=== PATIENT | male | born 1955 | race Caucasian/White ===

== ENCOUNTER → 2023-09-12 14:53 | Outpatient (BNVA) | payer OTHER, SELFPAY | PROVIDERS: Visit Provider Podiatrist Foot & Ankle Surgery | DX: M20.41 Other hammer toe(s) (acquired), right foot; E11.42 Type 2 diabetes mellitus with diabetic polyneuropathy; M21.41 Flat foot [pes planus] (acquired), right foot; M77.41 Metatarsalgia, right foot; M21.42 Flat foot [pes planus] (acquired), left foot | CPT/HCPCS: 73630; 99204 ==

== ENCOUNTER 2023-09-17 14:46 | Outpatient (CLI) | payer OTHER, SELFPAY ==
--- NOTE | 2023-09-17 15:15 | MR_ITS ---
WS: [id number] EXAMINATION: MR foot RT wo con* [id number] ORDER DATE: 09/17/2023 3:02 PM COMPARISON: None. HISTORY: evaluate for Gagnon's neuroma right foot CONTRAST: None. TECHNIQUE: Sagittal T1, sagittal STIR, coronal PD, coronal T2, axial T1, axial T2, and axial PD imagi ng with fat saturation technique. 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 Hammertoe deformitie s. Hypertrophic changes in the first MTP with fluid at the MTP joint. No definite evidence of of Mort on's neuroma at the MTP joints. Exam is somewhat limited due to toe contractures. Ultrasound could be performed for further evaluation if persistent concern. No other suspicious findings. IMPRESSION: 1. 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 Fluid and edema at the first MTP joint with hypertrophic changes. 2. Hammertoe deformities. 3. No definite evidence of Gagnon's neuroma. Exam is somewhat limited due to toe contractures. Ultra sound could be performed in the area of interest if persistent concern.
== END 2023-09-17 14:47 | disposition home or self-care (01) ==
LOC: RAD 14:46
PROVIDERS: Visit Provider Podiatrist Foot & Ankle Surgery
DX: M20.41 Other hammer toe(s) (acquired), right foot (principal); M77.41 Metatarsalgia, right foot; M19.071 Primary osteoarthritis, right ankle and foot; M21.611 Bunion of right foot; M20.11 Hallux valgus (acquired), right foot; R60.0 Localized edema
CPT/HCPCS: 73718

== ENCOUNTER → 2023-11-07 13:33 | Outpatient (BNVA) | payer OTHER, SELFPAY | PROVIDERS: PCP Family Medicine; Visit Provider Surgery | DX: Z12.11 Encounter for screening for malignant neoplasm of colon (principal) | CPT/HCPCS: 99203 ==

== ENCOUNTER 2023-11-16 15:04 | Outpatient (CLI) | payer OTHER, SELFPAY ==
--- NOTE | 2023-11-16 15:15 | US_ITS ---
WS: [id number] ULTRASOUND SOFT TISSUES RIGHT foot. HISTORY: M77.41 - Metatarsalgia, right foot COMPARISON: MRI 09/17/2023 TECHNIQUE: 2-D and color Doppler imaging is submitted. Ultrasound is performed of the intertarsal spaces of the RIGHT foot with attention between the first and second, second and third and third and fourth spaces. There is no mass identified within either o f the intertarsal spaces. IMPRESSION: No Gagnon's neuroma identified in the intertarsal spaces of the RIGHT foot.
== END 2023-11-16 15:05 | disposition home or self-care (01) ==
PROVIDERS: PCP Family Medicine; Visit Provider Podiatrist Foot & Ankle Surgery
DX: M77.41 Metatarsalgia, right foot (principal)
CPT/HCPCS: 76882

== ENCOUNTER 2023-12-31 12:54 | Outpatient (CLI) | payer OTHER, SELFPAY ==
--- NOTE | 2023-12-31 13:00 | MR_ITS ---
WS: [id number] MRI LUMBAR SPINE NONCONTRAST TECHNIQUE: Sagittal T1, T2 and STIR imaging. Axial T1 and T2 imaging. CLINICAL INFORMATION: LOW BACK PAIN/INTERVERTEBRAL DISC DZ COMPARISON: None. FINDINGS: Mild lumbar curve. No acute compression. Mild disc bulging worse at L4-L5 and L5-S1. No high-grade ce ntral canal stenosis. L1-L2: Mild annular bulging. Slight effacement of the ventral thecal sac. Mild facet arthropathy. For amen are patent. L2-L3: Mild annular bulging with narrowing of the LEFT subarticular recess. Moderate facet arthropath y. Foramen are patent. L3-L4: Mild annular bulging. Slight effacement of ventral thecal sac. Mild facet arthropathy. Mild LE FT foraminal narrowing. L4-L5: Mild disc bulge with narrowing of the RIGHT greater than LEFT subarticular recess. Impingement of traversing RIGHT L5 nerve root. Moderate facet arthropathy. Moderate RIGHT and no significant LEF T foraminal narrowing. L5-S1: Mild annular bulging. Mild facet arthropathy. Spinal canal and foramen are patent. Visualized pelvic bony structures: Normal. Paravertebral soft tissues: Normal. IMPRESSION: 1. Mild lumbar curve. No acute compression. No high-grade central canal stenosis. 2. Annular bulging L4-5 with impingement RIGHT subarticular recess and traversing RIGHT L5 nerve keon t. Recommend correlation RIGHT L5 nerve root symptoms. 3. Moderate RIGHT L4-5 foraminal narrowing with impingement on the exiting RIGHT L4 nerve root. 4. Annular bulging L2-3 with narrowing of the LEFT subarticular recess. 5. Moderate facet arthropathy L4-5.
== END 2023-12-31 12:55 | disposition home or self-care (01) ==
LOC: RAD 12:55
PROVIDERS: PCP Family Medicine; Visit Provider Family Medicine
DX: M54.50 Low back pain, unspecified (principal); M48.061 Spinal stenosis, lumbar region without neurogenic claudication; M47.816 Spondylosis without myelopathy or radiculopathy, lumbar region
CPT/HCPCS: 72148

== ENCOUNTER → 2024-01-17 13:42 | Outpatient (BNVA) | payer OTHER, SELFPAY | PROVIDERS: PCP Family Medicine; Referring Provider Family Medicine; Visit Provider Orthopaedic Surgery | DX: M54.9 Dorsalgia, unspecified (principal); M48.062 Spinal stenosis, lumbar region with neurogenic claudication | CPT/HCPCS: 36415; 80053; 81003; 85025; 99204 ==

== ENCOUNTER → 2024-08-13 13:38 | Outpatient (BNVA) | payer OTHER, SELFPAY | PROVIDERS: PCP Family Medicine; Visit Provider Surgery | DX: K21.9 Gastro-esophageal reflux disease without esophagitis (principal); Z12.11 Encounter for screening for malignant neoplasm of colon | CPT/HCPCS: 99214 ==

== ENCOUNTER 2024-08-28 06:37 | Day surgery (SDC) | payer OTHER, SELFPAY ==
[2024-08-28 06:54] VITALS: BP 126/76; PULSE 109; RESP 18; TEMP 36.6; O2SAT 96; BMI 22.8
[2024-08-28] MEDS: sodium chloride 0.9% 500 ML 15 ML IV (07:04)
[2024-08-28 07:08] LABS: Glucose Point of Care 120 mg/dL (70-110)
--- NOTE | 2024-08-28 07:34 | P.ANESASSM_ITS ---
Pre-Anesthetic Assessment Height/Weight: Height 1.73 m Weight 68.039 kg Temp Pulse Resp BP Pulse Ox O2 Del Method 97.8 F 109 H 18 126/76 96 Room Air 08/28/24 06:54 08/28/24 06:54 08/28/24 06:54 08/28/24 06:54 08/28/24 06:54 08/28/24 06:54 Operation Date: 08/28/24 08:20 Proposed Procedures p EGD - 73003, 57527, G0105, K21.9, Z12.11(Not Applicable) - Johann Elkins MD s Colonoscopy(Not Applicable) - Johann Elkins MD Was Beta Ganga taken within 24 hours: N/A Was Clonidine taken within 24 hours: N/A Last intake: Intake Last Liquid Date 08/27/24 Last Liquid Time 19:30 Last Solid Date 08/26/24 Last Solid Time 19:00 Social No alcohol and No tobacco Exam alert and oriented x 3 Airway Submandibular: within normal limits Cervical ROM: within normal limits Mallampati: Class II Dentition: false Pulmonary None reported CV/HEM Hypertension 2 stents placed 11 years ago. None reported Hepatic None reported GI Gastroesophageal Reflux Disease Metabolic Diabetes Mellitus and Hyperlipidemia Musc/[facility] Osteoarthritis/DJD Neuropsych None reported Anesthetic Plan ASA status: 3 Anesthesia: Anesthesia Evaluation and MAC Medications/Allergies Home Medications Medication Instructions Recorded Confirmed Last Taken Type Low profile CUSTOM co-poly insoles #1 ea 09/12/23 08/28/24 Unknown Rx alogliptin 25 mg tablet 25 mg PO DAILY 09/12/23 08/28/24 08/27/24 History atorvastatin 80 mg tablet 80 mg PO DAILY 09/12/23 08/28/24 08/27/24 History clopidogrel 75 mg tablet 75 mg PO DAILY 09/12/23 08/28/24 08/22/24 History empagliflozin 25 mg tablet 25 mg PO DAILY 09/12/23 08/28/24 08/27/24 History lisinopril 20 mg tablet 20 mg PO DAILY 09/12/23 08/28/24 08/27/24 History citalopram 10 mg tablet 10 mg PO DAILY 11/07/23 08/28/24 08/27/24 History Allergies Allergy/AdvReac Type Severity Reaction Status Date / Time No Known Allergies Allergy Verified 08/13/24 13:49 PFS Anesthesia Medical History Gagnon's neuroma of right foot Family History Mother COPD (chronic obstructive pulmonary disease) Grandmother Emphysema lung Social History Smoking and tobacco/nicotine status: former use of tobacco/nicotine Alcohol intake: former Data Anesthesia Cardiac Studies: No Data to Display
--- NOTE | 2024-08-28 07:36 | W.PM.OPSUD ---
Surgery/Procedure H&P Update DATE OF PROCEDURE: August 28, 2024 DATE H&P PERFORMED: 08/13/24 H&P UPDATE INFORMATION: I have reviewed H&P completed within last 30 days, I have examined patient prior to procedure, No changes to prior documentation and H&P is in [facility] EMR on date indicated PLANNED PROCEDURE: Operation Date: 08/28/24 08:20 Proposed Procedures p EGD - 56903, 99772, G0105, K21.9, Z12.11(Not Applicable) - Johann Elkins MD s Colonoscopy(Not Applicable) - Johann Elkins MD
[2024-08-28 08:34] VITALS: BP 93/63; PULSE 101; RESP 18; TEMP 36.1; O2SAT 93
--- NOTE | 2024-08-28 08:54 | ANE.PACU2 ---
Inpatient post-anesthesia follow up: Airway intact: Yes Vital signs: Temperature 97.0 F Pulse Rate 101 Respiratory Rate 18 Blood Pressure 93/63 Pulse Oximetry 93 Oxygen Delivery Me thod Room Air Oxygen Flow Rate Fraction of Inspir ed Oxygen Hydration adequate: Yes Nausea and vomiting: No Pain level: 1 Mental status: Baseline
[2024-08-28 09:00] VITALS: BP 117/69; PULSE 92; RESP 17; O2SAT 96
== END 2024-08-28 09:31 | disposition home or self-care (01) ==
PROVIDERS: PCP Family Medicine; Visit Provider Surgery
PROC: 0DJ08ZZ Inspection of Upper Intestinal Tract, Via Natural or Artificial Opening Endoscopic (ICD-10-PCS; CPT 43235; principal; 2024-08-28 08:20)
PROC: 0DJD8ZZ Inspection of Lower Intestinal Tract, Via Natural or Artificial Opening Endoscopic (ICD-10-PCS; CPT 45378; 2024-08-28 08:20)
DX: Z12.11 Encounter for screening for malignant neoplasm of colon (principal); D12.3 Benign neoplasm of transverse colon; K21.9 Gastro-esophageal reflux disease without esophagitis; K29.80 Duodenitis without bleeding; K29.70 Gastritis, unspecified, without bleeding; E11.9 Type 2 diabetes mellitus without complications; E78.5 Hyperlipidemia, unspecified; M19.90 Unspecified osteoarthritis, unspecified site; Z87.891 Personal history of nicotine dependence
CPT/HCPCS: 36416; 43239; 45380; 82962; 88305; J2371; J2704; J7040

== ENCOUNTER → 2024-09-16 14:38 | Outpatient (BNVA) | payer OTHER, SELFPAY | PROVIDERS: PCP Family Medicine; Visit Provider Orthopaedic Surgery | DX: M54.9 Dorsalgia, unspecified (principal); M48.062 Spinal stenosis, lumbar region with neurogenic claudication | CPT/HCPCS: 36415; 80053; 81001; 83036; 85025; 99214 ==

== ENCOUNTER → 2024-09-30 13:15 | Outpatient (BNVA) | payer OTHER, SELFPAY | PROVIDERS: PCP Family Medicine; Visit Provider Surgery | DX: Z09 Encounter for follow-up examination after completed treatment for conditions other than malignant neoplasm (principal) | CPT/HCPCS: 99213 ==

== ENCOUNTER → 2024-10-03 09:27 | Outpatient (BNVA) | payer OTHER, SELFPAY | PROVIDERS: PCP Family Medicine; Visit Provider Family Medicine | DX: Z01.818 Encounter for other preprocedural examination (principal) | CPT/HCPCS: 93005 ==

== ENCOUNTER 2024-10-24 05:50 | Day surgery (SDC) | payer OTHER, SELFPAY ==
[2024-10-24] VITALS (11 sets, daily range): BP systolic 119–152; BP diastolic 71–94; PULSE 87–100; RESP 18–20; TEMP 36.2–36.3; O2SAT 93–100; BMI 23.6
[2024-10-24] MEDS: sodium chloride 0.9% 1,000 ML 30 ML IV (06:12)
[2024-10-24 06:24] LABS: Glucose Point of Care 146 mg/dL (70-110)
--- NOTE | 2024-10-24 06:24 | ANES.PREANE2 ---
Pre-Anesthetic Assessment Height/Weight: Height 5 ft 8 in Weight 155 lb Temp Pulse Resp BP Pulse Ox O2 Del Method 97.4 F L 99 18 128/71 98 Room Air 10/24/24 06:13 10/24/24 06:13 10/24/24 06:13 10/24/24 06:13 10/24/24 06:13 10/24/24 06:15 Preop Diagnosis: Lumbar stenosis with neurogenic claudication Operation Date: 10/24/24 07:00 Proposed Procedures p Lumbar Decompression(Not Applicable) - Michael Dennison, DO Was Beta Ganga taken within 24 hours: N/A Was Clonidine taken within 24 hours: N/A Last intake: Intake Last Liquid Date 10/23/24 Last Liquid Time 18:00 Last Solid Date 10/23/24 Last Solid Time 18:00 Social No alcohol and No tobacco Exam alert, oriented x 3, clear to auscultation bilaterally and regular rate & rhythm Airway Submandibular: within normal limits Cervical ROM: within normal limits Mallampati: Class III Dentition: false Comments: Comments: rust Anesthetic Plan ASA status: 3 Anesthesia: General Other: No prior issues with anesthesia NPO since yesterday evening History of CAD s/p PCI approximately 13 years ago. Plavix last taken 10/19/2024 Type 2 diabetes, no insulin. pre-op BS 146 Hypertension on lisinopril. Preop BP 128/71 Labs reviewed from 09/16/2024 and acceptable for procedure EKG showing sinus rhythm with frequent PVCs Plan for GETA Medications/Allergies Home Medications ?Medication ?Instructions ?Recorded ?Confirmed ?Last Taken ?Type Low profile CUSTOM co-poly insoles #1 ea 09/12/23 10/03/24 Unknown Rx atorvastatin 80 mg tablet 80 mg PO DAILY 09/12/23 10/23/24 10/22/24 History clopidogrel 75 mg tablet 75 mg PO DAILY 09/12/23 10/23/24 10/19/24 History Held on 08/28/24. Instructions: Resume on 08/31/24. empagliflozin 25 mg tablet 25 mg PO DAILY 09/12/23 10/23/24 10/23/24 History lisinopril 20 mg tablet 20 mg PO DAILY 09/12/23 10/23/24 10/23/24 History citalopram 10 mg tablet 10 mg PO DAILY 0210/23/24 10/23/24 History Allergies Allergy/AdvReac Type Severity Reaction Status Date / Time No Known Allergies Allergy Verified 10/24/24 06:08 Current Medications Generic Name Dose Route Start Last Admin Trade Name Rickey PRN Reason Stop Dose Admin Sodium Chloride 1,000 mls @ 30 mls/hr 10/24/24 06:00 10/24/24 06:12 Sodium Chloride 0.9% IV 10/25/24 05:59 30 mls/hr .Q24H LILIAM Administration PFSH Anesthesia Medical History Gagnon's neuroma of right foot Family History Mother COPD (chronic obstructive pulmonary disease) Grandmother Emphysema lung Social History Smoking and tobacco/nicotine status: never used tobacco/nicotine Alcohol intake: former Data Anesthesia Cardiac Studies: No Data to Display
--- NOTE | 2024-10-24 06:41 | W.PM.OPSUD ---
Surgery/Procedure H&P Update DATE OF PROCEDURE: October 24, 2024 DATE H&P PERFORMED: 10/03/24 H&P UPDATE INFORMATION: I have reviewed H&P completed within last 30 days, I have examined patient prior to procedure and No changes to prior documentation PREOP DIAGNOSIS: Lumbar stenosis with neurogenic claudication PLANNED PROCEDURE: Operation Date: 10/24/24 07:00 Proposed Procedures p Lumbar Decompression(Not Applicable) - Michael Dennison DO
[2024-10-24] MEDS: ceFAZolin 2,000 mg SDV 2000 MG IVP (07:01)
[2024-10-24] MEDS: lidocaine-epi 1% 20 mL INJ INJECTION (07:29)
--- NOTE | 2024-10-24 07:52 | XR_ITS ---
WS: [id number] XR lumbar spine 2-3V* [id number] REASON FOR EXAM: OR PICS FINDINGS: Surgical device overlies the right aspect of the L4-L5 disc space. XR/XR lumbar spine 2-3V* [id number] IMPRESSION: Lumbar level localization and surgery as above.
--- NOTE | 2024-10-24 08:16 | PM.OP ---
Operative Report Date of procedure: October 24, 2024 Pre-op diagnosis: Lumbar stenosis with neurogenic claudication Post-op diagnosis: same Procedure done: L4/5 laminectomy with partial facetectomy Surgeon: Michael Dennison DO Estimated blood loss (mL): 5 Procedure: L4/5 laminectomy and partial facetectomy Patient is brought to the operative suite. After undergoing anesthesia they are placed in the prone position. All areas of impingement are well padded. Patient is then prepped and draped in the normal sterile fashion. A skin incision is made over the L4/5 level. This is confirmed under c-arm guidance. A series of dilators are passed and the tubular retractor is docked on the L4 lamina. A bovie is used to clear the soft tissue off the lamina and the L 4/5 facet joint. A high speed valerie is then used to perform the laminectomy and take down the medial aspect of the L 4/5 facet joint. A kerrison rongeure was then used to take down the remaining lamina and smooth the edge of the laminectomy up to the point where the ligamentum flavum attaches. Attention was then brought to the medial aspect of the facet joint. The remaining medial aspect of the superior and inferior aspect of the facet joint were taken down with the kerrison from the pedicle of L4 to L 5. The facet joint had significant hypertrophy. Attention was then brought to the Ligamentum Flavum. The ligament was taken down from the lamina of L4 to L5 and out medially to the remaining facet joint. The ligament was thick. The dura was then exposed. The dura was in good repair. The L4 nerve was then traced with a curette out the L4/5 foramen and found to be adequately decompressed. The L5 nerve was traced with a curette around the L5 pedicle. The lateral recess was opened with a kerrison helping to further decompress the L5 nerve. Wound is then irrigated copiously with saline and surgiflo is used to stop any bleeding. The tubular retractor is removed and the wound is closed with vicryl and monocryl suture. Glue is then used to protect the wound. A sterile dressing is then placed. Patient was then placed in the supine position and transferred to the PACU in stable condition.
[2024-10-24] MEDS: HYDROcodone-acetaminophen 5-325 mg Tablet 1 TAB PO (08:42)
--- NOTE | 2024-10-24 09:01 | ANE.PACU2 ---
Inpatient post-anesthesia follow up: Airway intact: Yes Vital signs: Temperature 97.1 F Pulse Rate 87 Respiratory Rate 18 Blood Pressure 139/83 Pulse Oximetry 95 Oxygen Delivery Me thod Room Air Oxygen Flow Rate 8 Fraction of Inspir ed Oxygen Hydration adequate: Yes Nausea and vomiting: No Pain level: 1 Mental status: Baseline
== END 2024-10-24 09:01 | disposition home or self-care (01) ==
PROVIDERS: PCP Family Medicine; Visit Provider Orthopaedic Surgery
PROC: (CPT 63005; principal; 2024-10-24 07:00)
DX: M48.062 Spinal stenosis, lumbar region with neurogenic claudication (principal); I25.10 Atherosclerotic heart disease of native coronary artery without angina pectoris; Z79.02 Long term (current) use of antithrombotics/antiplatelets; Z79.899 Other long term (current) drug therapy; E11.9 Type 2 diabetes mellitus without complications; I10 Essential (primary) hypertension
CPT/HCPCS: 63047; 63048; 36416; 72100; 76000; 82962; J0690; J1100; J1171; J2250; J2405; J2704; J3010; J3490; J7030

== ENCOUNTER → 2024-11-06 15:02 | Outpatient (BNVA) | payer OTHER, SELFPAY | PROVIDERS: PCP Family Medicine; Visit Provider Orthopaedic Surgery | DX: Z98.890 Other specified postprocedural states (principal) | CPT/HCPCS: 99024 ==